=== PATIENT | male | born 1930 | race Caucasian/White ===

== ENCOUNTER 2016-09-17 06:46 | Day surgery (SDC) | payer MEDICARE, OTHER ==
[2016-09-17] MEDS ORDERED: SYNTHROID75 MC1 PO (07:16)
== END 2016-09-17 08:45 ==
LOC: SRG 06:46 → SHSC 06:48
PROC: 0HQ1XZZ Repair Face Skin, External Approach (ICD-10-PCS; principal; 2016-09-17)
PROC: 0HB1XZZ Excision of Face Skin, External Approach (ICD-10-PCS; 2016-09-17)
PROC: 0HB4XZZ Excision of Neck Skin, External Approach (ICD-10-PCS; 2016-09-17)
PROC: 0HQ4XZZ Repair Neck Skin, External Approach (ICD-10-PCS; 2016-09-17)
DX: C44.329 Squamous cell carcinoma of skin of other parts of face (principal); R22.1 Localized swelling, mass and lump, neck; Z79.899 Other long term (current) drug therapy